=== PATIENT | male | born 1960 | race Caucasian/White ===

== ENCOUNTER 2022-06-12 05:24 | Inpatient (IN) | payer MEDICAID ==
[2022-06-07 10:58] LABS: BASOPHILS # (AUTO) 0.2 X10'3 (0-0.2); BASOPHILS % (AUTO) 1.9 % (0-1); EOSINOPHILS # (AUTO) 0.3 X10'3 (0-0.9); EOSINOPHILS % (AUTO) 2.4 % (0-6); LYMPHOCYTES # (AUTO) 1.3 X10'3 (1.1-4.8); LYMPHOCYTES % (AUTO) 12.1 % (21-51); MEAN CORPUSCULAR HEMOGLOBIN 30.2 PG (27.0-31.0); MEAN CORPUSCULAR HGB CONC 33.2 g/dL (33.0-36.5); MEAN PLATELET VOLUME 6.6 FL (7.4-10.4); MONOCYTES # (AUTO) 0.5 X10'3 (0-0.9); MONOCYTES % (AUTO) 4.2 % (2-12); NEUTROPHILS # (AUTO) 8.6 X10'3 (1.8-7.7); NEUTROPHILS % (AUTO) 79.4 % (42-75); PRE OP HEMATOCRIT 51.5 % (42.0-52.0); PRE OP HEMOGLOBIN 17.1 g/dL (14.0-17.9); PRE OP PLATELET COUNT 396 X10'3 (140-440); RED BLOOD COUNT 5.66 X10'6 (4.70-6.10); RED CELL DISTRIBUTION WIDTH 15.5 % (11.5-14.5)
[2022-06-07 11:11] LABS: ALBUMIN 3.4 G/DL (3.4-5.0); ALBUMIN/GLOBULIN RATIO 0.7 (1.1-1.5); ALKALINE PHOSPHATASE 83 IU/L (46-116); BLOOD UREA NITROGEN 18 MG/DL (7-18); CALCIUM 9.1 MG/DL (8.5-10.1); CHLORIDE 104 MMOL/L (99-107); PRE OP ALT 48 U/L (30-65); PRE OP ANION GAP 9 (8-16); PRE OP AST 25 U/L (10-37); PRE OP BILIRUB, TOTAL 0.8 MG/DL (0.0-1.0); PRE OP GLUCOSE 101 MG/DL (70-104); PRE OP POTASSIUM 4.3 MMOL/L (3.4-5.1); PRE OP SODIUM 138 MMOL/L (135-145); TOTAL CARBON DIOXIDE 25.4 MMOL/L (24-32); TOTAL PROTEIN 8.2 G/DL (6.4-8.2)
[2022-06-07 11:14] LABS: BUN/CREATININE RATIO 13.8 (5.4-32.0); eGFR 56 ML/MIN
[2022-06-12] VITALS (21 sets, daily range): BP systolic 119–178; BP diastolic 76–109
[~2022-06-12] VITALS: Ht 177.8 cm; Wt 92.9 kg
[~2022-06-12 05:24] MED LIST: FINA5TAB11 PO; FLO0.4C PO; METO50TA7 PO
[2022-06-12] MEDS ORDERED: ringers solution, lacted 1,000 ML IV SCH ×2 (05:30→07:50)
[2022-06-12] MEDS ORDERED: famotidine 20mg tablet PO ONE (05:30)
[2022-06-12] MEDS ORDERED: vancomycin 1,500 MG in NS 300ml IV soln IV ONE (05:30)
[2022-06-12] MEDS ORDERED: ceFAZolin inj. 2,000 MG in dextrose 5%-water 100 ML IV ONE (05:30)
[2022-06-12] MEDS ORDERED: tranexamic acid 650mg tablet PO ONE (05:30)
[2022-06-12] MEDS ORDERED: DOCUMENT DATE & TIME OF BETA-BLOCKER PO ONE (05:30)
--- NOTE | 2022-06-12 05:35 | NUR ---
PT PREPPED FOR SURGERY, IV STARTED IN LEFT WRIST WITHOUT DIFFICULTY. PT STATES THAT HE USED THE MUPIROCIN IN HIS NARES AND SHOWERED WITH HIBACLENS FOR 5 DAYS WITH THE LAST DAY BEING THIS MORNING. RADIAL PULSE PALPABLE AND MARKED. PT AND SIGNIFICANT OTHER STATE THAT THEY READ THE PACKAGE INFORMATION AND DID NOT HAVE ANY QUESTION ABOUT THE PROCEDURE
[2022-06-12] MEDS ORDERED: ASPI-1264 PO (06:23)
[2022-06-12] MEDS ORDERED: ROPIVAcaine 0.5% (5mg/ml) 30ml vial ONE (06:54)
[2022-06-12] MEDS ORDERED: ketorolac trometh. 30mg/ml inj. ONE (06:54)
[2022-06-12] MEDS ORDERED: FENTANYL CITRATE/PF 50 MCG/1 ML VIAL ONE ×3 (07:25→09:25)
[2022-06-12] MEDS ORDERED: midazolam 1 mg/ML 2ml injection ONE ×2 (07:27→07:56)
[2022-06-12] MEDS ORDERED: ondansetron/PF 4mg/2ml inj IV PRN ×2 (07:50→10:25)
[2022-06-12] MEDS ORDERED: ROPIVAcaine 0.2% (10 MG/5 ML) BOLUS INJECTION INTERSCALE PRN (07:50)
[2022-06-12] MEDS ORDERED: ROPIVAcaine 0.2%/PF PUMP/bolus 545 ML INTERSCALE SCH (07:50)
[2022-06-12] MEDS ORDERED: morphine 2 MG/ML inj. syringe IV PRN (07:50)
[2022-06-12] MEDS ORDERED: morphine 4 MG/ML inj SYRINge IV PRN (07:50)
[2022-06-12] MEDS ORDERED: proCHLORperazine 10 MG/2 ml inj IV PRN (07:50)
[2022-06-12] MEDS ORDERED: meperidine/PF 25mg/ml syringe IV PRN ×3 (07:50)
[2022-06-12] MEDS ORDERED: sevoflurane 250ml liquid IH ONE (07:58)
[2022-06-12] MEDS ORDERED: acetaminophen 1,000mg/100ml IV 100 ML IV ONE (08:35)
[2022-06-12] MEDS ORDERED: ROPIVAcaine 0.5% (5mg/ml) 30ml vial IJ ONE (09:03)
[2022-06-12] MEDS ORDERED: ketamine 50mg/5ml syringe ONE (09:27)
[2022-06-12] MEDS ORDERED: glycopyrrolate 0.2mg/ml inj ONE (10:01)
[2022-06-12] MEDS ORDERED: meperidine/PF 25mg/ml syringe ONE (10:01)
[2022-06-12] MEDS ORDERED: ondansetron/PF 4mg/2ml inj ONE (10:01)
[2022-06-12] MEDS ORDERED: dexamethasone sod phosphate 4mg/ml inj. ONE (10:01)
[2022-06-12] MEDS ORDERED: propofol inj 20 ML IV ONE (10:01)
--- NOTE | 2022-06-12 10:15 | NUR ---
Received from OR via BED, accompanied by Anesthesiologist and report given by Anesthesiologist. PATIENT WAKING UP, NO S/S OF PAIN, V/S WNL, SCD ON, 18G TO LUE, RIGHT drsg to shoulder-CDI with SLING
[2022-06-12] MEDS ORDERED: HYDROcodone/acetaminophen 10/325mg tab PO PRN (10:25)
[2022-06-12] MEDS ORDERED: bisacodyl 10mg suppository rectal RC PRN (10:25)
[2022-06-12] MEDS ORDERED: diphenhydrAMINE 25mg capsule PO PRN ×2 (10:25)
[2022-06-12] MEDS ORDERED: HYDROmorphone inj. 0.5 MG/0.5 ML DISP.SYRIN IV PRN (10:25)
[2022-06-12] MEDS ORDERED: magnesium hydroxide 30ml (MOM) UD suspension PO PRN (10:25)
[2022-06-12] MEDS: potassium cl 20mEq in 1/2 NS 1,000 ML IV SCH ×2 (10:25→18:59)
[2022-06-12] MEDS ORDERED: naloxone 0.4 mg/ml inj IV PRN (10:25)
[2022-06-12] MEDS ORDERED: acetaminophen 325mg tablet PO PRN (10:25)
[2022-06-12] MEDS ORDERED: HYDROmorphone 1 mg/ml syringe IV PRN (10:25)
[2022-06-12] MEDS ORDERED: oxyCODONE IR 5mg (immed. release) tablet PO PRN ×2 (10:25)
--- NOTE | 2022-06-12 12:07 | NUR ---
NO ROOM QUALITY ASSURANCE MANAGER AVAILBLE, HOLDING PATIENT IN PACU. CONDITION IMPROVING A&OX4 PAINFULL AT TIMES SEE EMAR
--- NOTE | 2022-06-12 13:35 | NUR ---
PATIENT A&OX4, NIR PAIN, V/S WNL, SCD ON, 18G TO LUE, RIGHT drsg to shoulder-CDI with SLING. PATIENT TRANSPORTED TO 356B WITH ALL BELONGINGS AND HOOKED UP TO MONITORS IN ROOM AND REPORT GIVEN TO RN WHO HAS TAKEN OVER PATIENT CARE.
[2022-06-12] MEDS: acetaminophen 325mg tablet PO SCH ×2 (14:00→20:58)
[2022-06-12] MEDS: ceFAZolin/D5W- 1GM premix 50 ML IV SCH ×2 (18:59→23:24)
[2022-06-12] MEDS: HYDROcodone/acetaminophen 10/325mg tab PO PRN (19:00)
--- NOTE | 2022-06-12 19:49 | NUR ---
Patient in room [facility]. I have received report from pedro hicks and had the opportunity to ask questions and assume patient care.
[2022-06-12] MEDS ORDERED: vancomycin/NS 1 GM ADD-VANTAGE 250 ML IV SCH (20:00)
[2022-06-12] MEDS ORDERED: metoprolol succinate 25mg (24-HOUR) SR. Tablet PO SCH (21:00)
[2022-06-12] MEDS ORDERED: tamsulosin 0.4mg capsule PO SCH (21:00)
[2022-06-12] MEDS ORDERED: finasteride 5mg tablet PO SCH (21:00)
[2022-06-12] MEDS ORDERED: sennosides 8.6mg tablet PO SCH (21:00)
--- NOTE | 2022-06-12 22:22 | NUR ---
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
--- NOTE | 2022-06-12 23:50 | NUR ---
Page Sent PAGER ID: [phone] MESSAGE: [phone] b tish, pt has has a couple high Bps even after pain meds and heart medications. can i have an order for prn hydralazine.. [facility]
--- NOTE | 2022-06-13 | NUR ---
APatient in room [facility]. I have received report from JACQUELINE and had the opportunity to ask questions and assume patient care.
[2022-06-13] MEDS ORDERED: hyDRALAzine 10mg tablet PO PRN (00:05)
--- NOTE | 2022-06-13 00:10 | NUR ---
Problems reprioritized. Patient report given, questions answered & plan of care reviewed with pedro hicks, also she is going to recheck pts BP and give hydralazine once it is ackoledged by pharmacy.
[2022-06-13 00:30] VITALS: BP 155/92
[2022-06-13] MEDS: acetaminophen 325mg tablet PO SCH (04:15)
[2022-06-13] MEDS: potassium cl 20mEq in 1/2 NS 1,000 ML IV SCH (04:17)
[2022-06-13 06:00] VITALS: BP 137/78
--- NOTE | 2022-06-13 06:42 | NUR ---
Problems reprioritized. Patient report given, questions answered & plan of care reviewed with NEREYDA.
[2022-06-13 06:45] LABS: BASOPHILS % (AUTO) 0.3 % (0-1); EOSINOPHILS % (AUTO) 0.4 % (0-6); HEMATOCRIT 43.5 % (42.0-52.0); HEMOGLOBIN 14.6 g/dl (14.0-17.9); LYMPHOCYTES # (AUTO) 1.8 X10'3 (1.1-4.8); LYMPHOCYTES % (AUTO) 15.8 % (21-51); MEAN CORPUSCULAR HEMOGLOBIN 30.9 PG (27.0-31.0); MEAN CORPUSCULAR HGB CONC 33.5 g/dL (33.0-36.5); MEAN CORPUSCULAR VOLUME 92.3 FL (78-98); MEAN PLATELET VOLUME 6.9 FL (7.4-10.4); MONOCYTES # (AUTO) 1.2 X10'3 (0-0.9); NEUTROPHILS # (AUTO) 8.2 X10'3 (1.8-7.7); NEUTROPHILS % (AUTO) 72.5 % (42-75); PLATELET COUNT 281 X10'3 (140-440); RED BLOOD COUNT 4.72 X10'6 (4.70-6.10); RED CELL DISTRIBUTION WIDTH 15.4 % (11.5-14.5); WHITE BLOOD COUNT 11.4 X10'3 (4.5-11.0)
[2022-06-13] MEDS ORDERED: aspirin 325mg tablet PO SCH (08:00)
[2022-06-13 09:03] LABS: CHLORIDE 106 MMOL/L (99-107); POTASSIUM 4.4 MMOL/L (3.5-5.1); SODIUM 138 MMOL/L (135-145)
[2022-06-13 09:06] LABS: ANION GAP 12 (8-16); TOTAL CARBON DIOXIDE 19.6 MMOL/L (24-32)
[2022-06-13] MEDS: HYDROcodone/acetaminophen 10/325mg tab PO PRN (09:33)
[2022-06-14] MEDS ORDERED: acetaminophen 325mg tablet PO PRN (10:25)
== END 2022-06-13 11:44 | disposition home or self-care (01) | DRG 322 ==
LOC: PAS IN 05:24 → SUR 3N 13:45
PROVIDERS: ADMIT Orthopaedic Surgery; ATTEND Orthopaedic Surgery
PROC: 3E0T3BZ Introduction of Anesthetic Agent into Peripheral Nerves and Plexi, Percutaneous Approach (ICD-10-PCS; 2022-06-12)
PROC: 3E0T33Z Introduction of Anti-inflammatory into Peripheral Nerves and Plexi, Percutaneous Approach (ICD-10-PCS; 2022-06-12)
PROC: 0RRJ00Z Replacement of Right Shoulder Joint with Reverse Ball and Socket Synthetic Substitute, Open Approach (ICD-10-PCS; principal; 2022-06-12 07:58)
DX: M19.111 Post-traumatic osteoarthritis, right shoulder (principal); I10 Essential (primary) hypertension; I48.91 Unspecified atrial fibrillation; N40.0 Benign prostatic hyperplasia without lower urinary tract symptoms; M75.121 Complete rotator cuff tear or rupture of right shoulder, not specified as traumatic; S42.111A Displaced fracture of body of scapula, right shoulder, initial encounter for closed fracture; Z79.899 Other long term (current) drug therapy; Z79.82 Long term (current) use of aspirin
CPT/HCPCS: 36415; 80051; 80053; 82948; 85025; 87081; 97110; 97161; 97530; A4618; A7000; C1776; G0378; J0131; J0690; J1100; J1885; J2175; J2250; J2270; J2405; J2704; J2795; J3010; J3370; J3480; J3490; J7040; J7060; J7120